=== PATIENT | male | born 1980 | race Caucasian/White ===

== ENCOUNTER 2016-08-12 12:16 | Emergency (ER) | payer OTHER ==
[~2016-08-12] VITALS: Ht 182.8 cm; Wt 59.0 kg
[~2016-08-12 12:16] MED LIST: ATARAX25 MG PO; CATAFLAM50 MG PO; CIPRO500 MG PO; CLINDAMYCIN HC300 MG PO; HYDROCODONE BIT1 T11 PO; LIDEX0.05% T; MEDROL DOSEPAK4 MG PO; NKHM; NORCO 325 MG-51 TAB PO; PEN-VEE K500 MG PO; PEN-VK500 MG PO; PREDNICOT20 MG PO
[2016-08-12] MEDS ORDERED: Tobrex Ophth S2.5 ML OPH (13:37)
== END 2016-08-12 14:51 | disposition home or self-care (01) ==
LOC: ED 12:16
DX: S05.02XA Injury of conjunctiva and corneal abrasion without foreign body, left eye, initial encounter (principal); F17.200 Nicotine dependence, unspecified, uncomplicated; X58.XXXA Exposure to other specified factors, initial encounter; Y93.89 Activity, other specified; Y92.89 Other specified places as the place of occurrence of the external cause; Y99.9 Unspecified external cause status

== ENCOUNTER 2017-05-04 06:42 | Emergency (ER) | payer OTHER ==
[~2017-05-04] VITALS: Ht 172.7 cm; Wt 56.7 kg
[~2017-05-04 06:42] MED LIST changes: +Tobrex Ophth S2.5 ML OPH
[2017-05-04] MEDS ORDERED: Motrin,Rufen800 MG PO (08:50)
== END 2017-05-04 09:43 | disposition home or self-care (01) ==
LOC: ED 06:42
DX: S60.211A Contusion of right wrist, initial encounter (principal); F10.10 Alcohol abuse, uncomplicated; W00.2XXA Other fall from one level to another due to ice and snow, initial encounter; Y93.89 Activity, other specified; Y92.89 Other specified places as the place of occurrence of the external cause; Y99.8 Other external cause status

== ENCOUNTER → 2018-07-21 | Outpatient (CLI) | payer OTHER ==
[~2018-07-21] MED LIST changes: +Motrin,Rufen800 MG PO
[2018-07-21 15:11] LABS: HEMATOCRIT 41.8 % (42.0-52.0); HEMOGLOBIN 14.3 g/dl (14.0-18.0); MEAN CELL VOLUME 88.7 fl (80.0-94.0); MEAN CORPUSCULAR HGB 30.4 pg (27.0-31.0); MEAN CORPUSCULAR HGB CONC 34.2 g/dl (33.0-37.0); MEAN PLATELET VOLUME 10.8 fl (9.6-12.3); RED BLOOD COUNT 4.71 10*6/uL (4.50-5.90); RED CELL DISTRI WIDTH 13.1 % (0-14.5); WHITE BLOOD COUNT 9.9 10*3/uL (4.8-10.8)
[2018-07-21 15:38] LABS: ALBUMIN 4.2 gm/dl (3.1-4.5); ALKALINE PHOSPHATASE 64 U/L (45-117); BUN 6 mg/dl (7-24); CHLORIDE 107 mmol/L (98-107); CHOLESTEROL 153 mg/dL (<200); CREATININE 0.98 mg/dL (0.70-1.30); HDL CHOLESTEROL 51 mg/dl (40-60); LDL CHOLESTEROL 85 mg/dL (9-159); POTASSIUM 4.1 mmol/L (3.5-5.1); SGOT/AST 14 IU/L (3-35); SGPT/ALT 20 U/L (12-78); SODIUM 142 mmol/L (136-145); TOTAL PROTEIN 7.8 gm/dL (6.4-8.2); TRIGLYCERIDES 87 mg/dl (<150); VLDL CHOLESTEROL 17 mg/dL (6-40)
== END | disposition home or self-care (01) ==
LOC: LAB 14:42
PROVIDERS: Family Medicine
DX: Z13.220 Encounter for screening for lipoid disorders (principal); R53.83 Other fatigue; E55.9 Vitamin D deficiency, unspecified; M54.9 Dorsalgia, unspecified; R51 Headache

== ENCOUNTER 2022-11-18 20:44 | Emergency (ER) | payer OTHER ==
[~2022-11-18] VITALS: Ht 172.7 cm; Wt 54.4 kg
[2022-11-18] MEDS ORDERED: CEPHALEXIN500 M1 PO (21:34)
== END 2022-11-18 21:49 | disposition home or self-care (01) ==
LOC: ED 20:44
DX: S01.81XA Laceration without foreign body of other part of head, initial encounter (principal); W22.8XXA Striking against or struck by other objects, initial encounter; Y93.89 Activity, other specified; Y92.89 Other specified places as the place of occurrence of the external cause; Y99.8 Other external cause status

== ENCOUNTER 2024-02-01 17:58 | Emergency (ER) | payer OTHER ==
[~2024-02-01] VITALS: Ht 172.7 cm; Wt 54.9 kg
[~2024-02-01 17:58] MED LIST changes: +CEPHALEXIN500 M1 PO
== END 2024-02-01 19:37 | disposition home or self-care (01) ==
LOC: ED 17:58
DX: S51.811A Laceration without foreign body of right forearm, initial encounter (principal); W45.8XXA Other foreign body or object entering through skin, initial encounter; Y93.89 Activity, other specified; Y92.009 Unspecified place in unspecified non-institutional (private) residence as the place of occurrence of the external cause; Y99.8 Other external cause status